=== PATIENT | male | born 1990 | race Two or more races ===

== ENCOUNTER 2018-11-05 04:15 | Emergency (ER) | payer MEDICAID ==
[~2018-11-05] VITALS: Ht 172.7 cm; Wt 77.1 kg
--- NOTE | 2018-11-05 04:15 | NUR ---
DR GONZALEZ INTO SUTURE PATIENT
[2018-11-05 04:38] VITALS: BP 127/75
--- NOTE | 2018-11-05 04:39 | NUR ---
Patient discharged to home in stable conditon. Written and verbal after care instructions given. Patient verbalizes understanding of instructions. WALKED OUT OF ER WITH NO DISTRESS NOTED
== END 2018-11-05 04:50 | disposition home or self-care (01) ==
LOC: ER 04:50
DX: S01.81XA Laceration without foreign body of other part of head, initial encounter (principal); W22.8XXA Striking against or struck by other objects, initial encounter; Y93.89 Activity, other specified; Y92.89 Other specified places as the place of occurrence of the external cause; Y99.8 Other external cause status
CPT/HCPCS: 12011; 99283; J3490; A4663

== ENCOUNTER 2018-11-15 13:10 | Emergency (ER) | payer MEDICAID ==
[~2018-11-15] VITALS: Ht 172.7 cm; Wt 77.1 kg
--- NOTE | 2018-11-15 13:47 | NUR ---
Patient discharged to home in stable conditon. Written and verbal after care instructions given. Patient verbalizes understanding of instructions.
== END 2018-11-15 13:56 | disposition home or self-care (01) ==
LOC: ER 13:10
DX: S01.81XD Laceration without foreign body of other part of head, subsequent encounter (principal); W19.XXXD Unspecified fall, subsequent encounter
CPT/HCPCS: A4663

== ENCOUNTER 2019-11-26 19:01 | Emergency (ER) | payer MEDICAID, OTHER ==
[~2019-11-26] VITALS: Ht 177.8 cm; Wt 79.4 kg
--- NOTE | 2019-11-26 19:24 | NUR ---
Pt was brought to the ER by family member, able to ambulate, with steady gait, although pt has pain when walking. AO x 4. Verbally responsive. Per patient, he is here after falling 2 steps and as he was balancing himself in a chair he hurt his right hip. Pt also said that he has history of restrolisthesis of the L4 to S1. made aware. No other complaints. Not in any active distress. Dr. Cartagena is at bedside for [facility]. Fall and safety precautions maintained.
--- NOTE | 2019-11-26 19:35 | NUR ---
Radiology aware, pending hip/pelvis xray.
--- NOTE | 2019-11-26 20:17 | NUR ---
Patient discharged to home in stable condition. Written and verbal after care instructions given. Patient verbalizes understanding of instructions. Stressed follow up or return to ER for worsening s/s. Pt ambulated out of ER in steady gait. Pt has ride home according to him. Discharged in stable condition.
[2019-11-26 20:26] VITALS: BP 110/68
== END 2019-11-26 20:30 | disposition home or self-care (01) ==
LOC: ER 19:01
DX: S70.01XA Contusion of right hip, initial encounter (principal); W18.30XA Fall on same level, unspecified, initial encounter; Y92.89 Other specified places as the place of occurrence of the external cause
CPT/HCPCS: 11740; 72170; 73502; A4663

== ENCOUNTER 2020-07-17 20:05 | Inpatient (IN) | payer OTHER ==
[~2020-07-17] VITALS: Ht 177.8 cm; Wt 77.1 kg
--- NOTE | 2020-07-17 21:00 | NUR ---
Dr. Silver at bedside for MSE.
[2020-07-17] MEDS ORDERED: BENZONATATE 100 MG CAPSULE PO ONE (21:15)
[2020-07-17] MEDS ORDERED: ALBUTEROL SULFATE 8 GM HFA.AER.AD IH PRN ×2 (21:15)
[2020-07-17] MEDS ORDERED: BENZONATATE 100 MG CAPSULE ONE (21:21)
--- NOTE | 2020-07-17 21:35 | NUR ---
Xray at bedside.
[2020-07-17 21:40] LABS: BASOPHILS % (AUTO) 0.2 % (0.0-2.0); EOSINOPHILS % (AUTO) 0.1 % (0.0-7.0); HEMOGLOBIN 15.4 g/dL (12.5-16.3); LYMPHOCYTES # (AUTO) 0.7 K/uL (20.0-40.0); LYMPHOCYTES % (AUTO) 27.3 % (20.5-51.5); MEAN CORPUSCULAR HEMOGLOBIN 32.4 uug (23.8-33.4); MEAN CORPUSCULAR HGB CONC 35 g/dL (32.5-36.3); MEAN CORPUSCULAR VOLUME 92.6 fL (73.0-96.2); MONOCYTES # (AUTO) 0.3 K/uL (2.0-10.0); MONOCYTES % (AUTO) 10.5 % (0.0-11.0); NEUTROPHILS # (AUTO) 1.6 K/uL (1.8-8.9); NEUTROPHILS % (AUTO) 61.9 % (38.5-71.5); PLATELET COUNT (AUTO) 126 K/uL (152-348); RED BLOOD CELL COUNT(AUTO) 4.75 MIL/uL (4.06-5.63); WHITE BLOOD COUNT (AUTO) 2.6 K/uL (3.6-10.2)
[2020-07-17 21:49] LABS: CREATININE 1.1 mg/dL (0.6-1.3); POTASSIUM 3.7 mmol/L (3.5-5.1)
[2020-07-17 22:11] LABS: BILIRUBIN,TOTAL 0.8 mg/dL (0.2-1.0); TOTAL PROTEIN, SERUM 7.1 g/dL (6.4-8.2)
[2020-07-17] MEDS ORDERED: levoFLOXacin 750 MG/D5W 150 ML PIGGYBACK IV ONE (22:45)
[2020-07-17] MEDS ORDERED: DEXAMETHASONE SOD PHOSPHATE 4 MG INJ IV ONE (22:45)
[2020-07-17] MEDS ORDERED: IV NORMAL SALINE 1000 ML BAG IV ONE (22:45)
[2020-07-17] MEDS ORDERED: levoFLOXacin 750MG/D5W 150 ML IV ONE (22:49)
[2020-07-17] MEDS ORDERED: DEXAMETHASONE SOD PHOSPHATE 4 MG INJ ONE (22:50)
--- NOTE | 2020-07-18 00:07 | NUR ---
Called [facility] to page Marc Castaneda DNP.
--- NOTE | 2020-07-18 00:18 | NUR ---
Dr. Silver on panel call with Marc Castaneda DNP. Patient accepted for admission to [facility], diagnosis: PUI covid pneumonia.
[2020-07-18] MEDS ORDERED: MAGNESIUM HYDROXIDE 30 ML LIQUID UDC PO PRN (00:30)
[2020-07-18] MEDS ORDERED: ALBUTEROL SULFATE 8 GM HFA.AER.AD IH PRN (00:30)
[2020-07-18] MEDS ORDERED: ACETAMINOPHEN 325 MG TABLET PO PRN (00:30)
[2020-07-18] MEDS ORDERED: ONDANSETRON 4 MG/2 ML VIAL IV PRN (00:30)
[2020-07-18] MEDS ORDERED: HYDROCODONE/APAP 5-325MG TABLET PO PRN (00:30)
[2020-07-18] MEDS ORDERED: MORPHINE SULFATE 2 MG/1 ML DISP.SYRIN IV PRN (00:30)
--- NOTE | 2020-07-18 00:30 | NUR ---
Report given to Akhil, Student Bar Host/Hostess.
[2020-07-18] MEDS: ENOXAPARIN SODIUM 40 MG/0.4 ML DISP.SYRIN SQ SCH ×2 (01:30→21:00)
[2020-07-18 01:40] VITALS: BP 109/58
--- NOTE | 2020-07-18 03:00 | NUR ---
A 30 Y/O MALE ADMITTED FROM ED TO TELE UNIT WITH ADMITTING DIAGNOSIS OF ACUTE HYPOXIC RESP FAILURE, R/O COVID-19. HE IA ALERT AND ORIENTED X4. ON 1.5 LPM OF O2 VIA NC WITH SATURATION @93%. HE LIVES AT HOME WITH HIS PARENTS WHO ARE COVID (+). HE HAS R ANTECUBITAL IV ACCES, INTACT AND PATENT. PT STATED ALSO THAT PRIOR TO ER VISIT HE FAINTED AT HOME AND FELL ON THE GROUND. PATIENT HAS A DRY SCAB WOUND ON RIGHT CALF D/T A FALL A WEEK AGO. PT NOTED WITH TEMP OF 99.8F TYLENOL 650MG GIVEN. HE IS ALSO NOTED WITH DRY COUGH, HE STATED HE RECEIVED TESSALON PERLES FOR COUGH IN THE ER. FALL PRECAUTIONS ENFORCED. CALL LIGHTS PLACED WITHIN EASY REACH. NEEDS ATTENDED AND MET. WILL CONTINUE TO MONITOR.
[2020-07-18 04:59] VITALS: BP 98/44
[2020-07-18] MEDS ORDERED: IV NORMAL SALINE 1000 ML BAG IV ONE (05:45)
--- NOTE | 2020-07-18 06:32 | NUR ---
Pt slept well. Continues on 1.5 LPM of O2 via NC saturating at 99%. IV access on right antecubital intact and patent. Pt is afebrile. Denies any c/o pain at this time. Stat COVID rapid antigen swab sample collected and delivered to labs. IVF 1000 mL NS started as ordered. Needs attended and met. Will continue to monitor.
[2020-07-18 06:51] LABS: THYROID STIMULATING HORMONE 0.506 mIU/mL (0.358-3.740)
[2020-07-18 06:55] LABS: BILIRUBIN,TOTAL 0.8 mg/dL (0.2-1.0); CREATININE 1.1 mg/dL (0.6-1.3); MAGNESIUM 2.1 mg/dL (1.8-2.4); PHOSPHOROUS 4.3 mg/dL (2.5-4.9); POTASSIUM 4.6 mmol/L (3.5-5.1); TOTAL PROTEIN, SERUM 7.3 g/dL (6.4-8.2)
[2020-07-18 08:03] LABS: BASOPHILS % (AUTO) 0.2 % (0.0-2.0); EOSINOPHILS % (AUTO) 0.1 % (0.0-7.0); HEMATOCRIT 43.6 % (36.7-47.1); HEMOGLOBIN 15.5 g/dL (12.5-16.3); LYMPHOCYTES # (AUTO) 0.5 K/uL (20.0-40.0); LYMPHOCYTES % (AUTO) 28.4 % (20.5-51.5); MEAN CORPUSCULAR HEMOGLOBIN 32.9 uug (23.8-33.4); MEAN CORPUSCULAR HGB CONC 36 g/dL (32.5-36.3); MEAN CORPUSCULAR VOLUME 92.8 fL (73.0-96.2); MONOCYTES # (AUTO) 0.1 K/uL (2.0-10.0); MONOCYTES % (AUTO) 6.5 % (0.0-11.0); NEUTROPHILS # (AUTO) 1.2 K/uL (1.8-8.9); NEUTROPHILS % (AUTO) 64.8 % (38.5-71.5); PLATELET COUNT (AUTO) 120 K/uL (152-348)
[2020-07-18 08:31] LABS: WHITE BLOOD COUNT (AUTO) 1.8 K/uL (3.6-10.2)
[2020-07-18] MEDS: DEXAMETHASONE SOD PHOSPHATE 4 MG INJ IV SCH (08:51)
[2020-07-18 11:30] VITALS: BP 102/54
[2020-07-18 13:22] LABS: IRON, SERUM 25 ug/dL (50-175)
--- NOTE | 2020-07-18 15:25 | NUR ---
Patient tapered to room air O2 saturation noted at 96%. No respiratory distress. Alert and oriented. Will continue to monitor.
[2020-07-18 15:42] VITALS: BP 97/57
[2020-07-18 18:19] LABS: BAND % (MANUAL) 6 % (0-10); LYMPHOCYTES % (MANUAL) 30 % (20-40); MONOCYTES % (MANUAL) 6 % (2-10); NEUTROPHILS % (MANUAL) 58 % (42-75)
--- NOTE | 2020-07-18 20:00 | NUR ---
Received patient lying in bed. AAOx4. Denies any pain or SOB. Complained of cough, non-productive at this time. Will provide Robitussin per order. On O2 at 1.5LPM via NC in place. O2 sat at 97%. NSR on tele at 65/min. IV site on right AC intact and patent. COVID isolation precaution initiated. Safety measure initiated and call bentley within reached.
[2020-07-18] MEDS: levoFLOXacin 750MG/D5W 750 MG in PREMIXED 1 EACH IV SCH (21:47)
[2020-07-18] MEDS: GUAIFENESIN/DEXTROMETHORPHAN 5 ML UDC PO PRN (22:00)
[2020-07-18 22:19] VITALS: BP 103/57
[2020-07-19 01:00] VITALS: BP 103/53
[2020-07-19 04:20] VITALS: BP 99/50
--- NOTE | 2020-07-19 06:32 | NUR ---
No significant event throughout the shift. Remains on O2 at 1.5LPM via NC in place. NSR on tele at 62/min. IV site on right AC remains intact and patent. No adverse effect noted form IV ABX. Needs attended to and met. COVID isolation precaution maintained. Safety measure maintained and call bentley within reached.
[2020-07-19 07:21] LABS: CREATININE 1.2 mg/dL (0.6-1.3); MAGNESIUM 1.8 mg/dL (1.8-2.4); PHOSPHOROUS 2.9 mg/dL (2.5-4.9); POTASSIUM 3.8 mmol/L (3.5-5.1)
--- NOTE | 2020-07-19 07:40 | NUR ---
Received in bed, asleep but arousable and able to make needs known. Denies pain. On RA O2 saturation 97%. IV site on RAC intact and patent. Isolation precautions maintained. Needs attended. Call light within reach. Will continue to monitor.
[2020-07-19 08:09] LABS: BASOPHILS % (AUTO) 0.2 % (0.0-2.0); HEMATOCRIT 43.4 % (36.7-47.1); HEMOGLOBIN 15.6 g/dL (12.5-16.3); LYMPHOCYTES # (AUTO) 1.1 K/uL (20.0-40.0); LYMPHOCYTES % (AUTO) 19.2 % (20.5-51.5); MEAN CORPUSCULAR HEMOGLOBIN 33.4 uug (23.8-33.4); MEAN CORPUSCULAR HGB CONC 36 g/dL (32.5-36.3); MONOCYTES # (AUTO) 0.5 K/uL (2.0-10.0); MONOCYTES % (AUTO) 9.2 % (0.0-11.0); NEUTROPHILS % (AUTO) 71.4 % (38.5-71.5); PLATELET COUNT (AUTO) 121 K/uL (152-348); RED BLOOD CELL COUNT(AUTO) 4.66 MIL/uL (4.06-5.63); WHITE BLOOD COUNT (AUTO) 5.6 K/uL (3.6-10.2)
[2020-07-19] MEDS: DEXAMETHASONE SOD PHOSPHATE 4 MG INJ IV SCH (08:39)
[2020-07-19 11:42] VITALS: BP 92/52
[2020-07-19 15:56] VITALS: BP 95/57
[2020-07-19 18:00] LABS: BAND % (MANUAL) 1 % (0-10); LYMPHOCYTES % (MANUAL) 23 % (20-40); MONOCYTES % (MANUAL) 6 % (2-10); NEUTROPHILS % (MANUAL) 70 % (42-75)
--- NOTE | 2020-07-19 20:00 | NUR ---
Received patient lying in bed. AAOx4. Denies any pain or SOB. Noted with non-productive cough, Offer cough medication and patient agreed. Will provide it. O2 sat at 95% on RA. NSR on tele at 82/min. IV site on right AC intact and patent. COVID isolation precaution initiated. Safety measure initiated and call bentley within reached.
[2020-07-19 20:09] VITALS: BP 97/56
[2020-07-19] MEDS: GUAIFENESIN/DEXTROMETHORPHAN 5 ML UDC PO PRN (20:34)
[2020-07-19] MEDS: ENOXAPARIN SODIUM 40 MG/0.4 ML DISP.SYRIN SQ SCH (21:00)
[2020-07-19] MEDS: levoFLOXacin 750MG/D5W 750 MG in PREMIXED 1 EACH IV SCH (21:53)
[2020-07-20 00:15] VITALS: BP 93/52
[2020-07-20 04:18] VITALS: BP 101/59
[2020-07-20] MEDS ORDERED: GUAIFENESIN/DEXTROMETHORPHAN 5 ML UDC ONE (06:04)
[2020-07-20] MEDS: GUAIFENESIN/DEXTROMETHORPHAN 5 ML UDC PO PRN (06:06)
--- NOTE | 2020-07-20 06:19 | NUR ---
No significant event throughout the shift. Still with off and on cough and given Robitussin DM 5ml PO PRN per order and effective. NSR on tele at 63/min. IV site on right AC remains intact and patent. No adverse reaction noted form IV ABX. Needs attended to and met. COVID isolation precaution maintained. Safety measure maintained and call bentley within reached.
[2020-07-20 08:00] VITALS: BP 101/58
[2020-07-20] MEDS: DEXAMETHASONE SOD PHOSPHATE 4 MG INJ IV SCH (08:40)
[2020-07-20 12:24] VITALS: BP 101/53
[2020-07-20] MEDS ORDERED: DEXA4TAB PO (13:40)
[2020-07-20] MEDS ORDERED: AZIT250T13 PO (13:40)
--- NOTE | 2020-07-20 14:17 | NUR ---
DCD instructions and prescription given to pto by charge R.N. who verbalized understanding. patient left room via wheel-chair. IV line dcd. pt. ambulated and saturation above 94% on Room air no sob, or any other discomfort reported. Patient instructed to self quarantine and follow up with PCP if needed it.
== END 2020-07-20 12:50 | disposition home or self-care (01) | DRG 137 ==
LOC: ER 20:07 → TELE3 07-18 00:38 → TELE 07-18 17:07
PROVIDERS: ADMIT Student in an Organized Health Care Education/Training Program; ATTEND Nurse Practitioner Acute Care
DX: U07.1 COVID-19 (principal); J12.82 Pneumonia due to coronavirus disease 2019; J96.01 Acute respiratory failure with hypoxia; D69.6 Thrombocytopenia, unspecified; D70.9 Neutropenia, unspecified; E44.1 Mild protein-calorie malnutrition; E86.1 Hypovolemia; Z20.822 Contact with and (suspected) exposure to COVID-19; R55 Syncope and collapse; E88.09 Other disorders of plasma-protein metabolism, not elsewhere classified; R74.01 Elevation of levels of liver transaminase levels
CPT/HCPCS: 36415; 70030-TC; 71045; 83550; 83605; 83615; 83735; 84100; 84443; 85025; 85730; 86140; 87040; A4663; G0378; J1100; J1650; J1956; J3535; J7030; U0003